=== PATIENT | male | born 1995 | race Caucasian/White ===

== ENCOUNTER 2017-11-07 15:31 | Emergency (ER) | payer MEDICAID, SELFPAY ==
[2017-11-07 16:40] VITALS: BP 141/90; PULSE 86; RESP 20; TEMP 36.8; O2SAT 99; BMI 24.4
--- NOTE | 2017-11-07 17:28 | HMH.EDUTC ---
[facility] Disposition Clinical Impression: STD exposure Disposition: Home, Self-Care Condition on Discharge: Good Additional Instructions: No unprotected sex Follow up with family doctor for further treatment and testing Return if needed If you began having worsening of symptoms and any life threatening symptoms go straight to ER Time of Disposition: 17:46 Medical Decision Making - Medical Records Medical records reviewed: Yes: I reviewed the patient's medical records. Vital Signs: 11/07/17 16:40 Temperature 98.2 F Temperature Source Temporal Artery Scan Pulse Rate [Brachial] 86 Respiratory Rate 20 Blood Pressure [Right Arm] 141/90 Blood Pressure Mean [Right Arm] 107 Blood Pressure Source [Right Arm] Automatic Cuff Blood Pressure Position [Right Arm] Sitting 02 Sat by Pulse Oximetry 99 Oxygen Delivery Method Room Air - Santi Inquiry Pt receiving controlled substance: No Santi was queried for this patient: No - Reevaluation(s) Time: 17:42 Reevaluation #1: Patient educated that often chlamydia and gonorrhea often coiside with each other and often treated together Patient advised that he is allergic to PCN and that she only tested positive for chlamydia and wanted treated for that Patient adivsed that we would give him medication to cover chlamydia and he would need to follow up with family doctor for further testing and treatment [facility] HPI - General Stated complaint: Poss STD Mode of Arrival: Ambulatory Source of Information: Patient Limitations: No Limitations Description of Symptoms (Recalled from Triage Doc. by RN): EXPOSED TO CHLAMYDIA HEENT Symptoms (Recalled from RN notes): No Resp Symptoms (Recalled from RN notes): No Skin Symptoms (Recalled from RN notes): No MS Symptoms (Recalled from RN notes): No Functional Status (Recalled from RN notes): NA - History of Present Illness Provider Complaint: Patient states that his girlfriend was recently diagnosed and treated for Chlamydia States that her doctor told her to inform him that he needed to come in and get treated State that he didn't want the test just to go ahead and take the medication and not get tested - Related Data Home Medications Medication Instructions Recorded Confirmed No Known Home Medications [No 11/07/17 11/07/17 Known Home Medications] Allergies Allergy/AdvReac Type Severity Reaction Status Date / Time Penicillins [PENICILLINS] Allergy Unknown I-HIVES Unverified 08/23/17 14:09 - Worker's Comp Is this a Worker's Comp case?: No [facility] History I have reviewed the patient's past medical history: Yes - Social History Smoking Status: Never smoker Alcohol Intake: never - Psychiatric History Expresses thoughts of harming self/others: None Suicide Plan Description: No Plan ROS Obtained: Yes All systems reviewed & no additional complaints Physical Exam - General General appearance: alert, in no apparent distress - Respiratory Respiratory exam: Present: normal lung sounds bilaterally. Absent: respiratory distress - Cardiovascular Cardiovascular exam: Present: regular rate, normal rhythm. Absent: JVD - Abdominal Exam Abdominal exam: Present: soft, normal bowel sounds. Absent: distention, tenderness, guarding - Neurological Exam Neurological exam: Present: alert, oriented X3
--- NOTE | 2017-11-07 17:41 | ED_ITS ---
[facility] [place] Disposition Clinical Impression: STD exposure Disposition: Home, Self-Care Condition on Discharge: Good Additional Instructions: No unprotected sex Follow up with family doctor for further treatment and testing Return if needed If you began having worsening of symptoms and any life threatening symptoms go straight to ER Time of Disposition: 17:46 Medical Decision Making - Medical Records Medical records reviewed: Yes: I reviewed the patient's medical records. Vital Signs: 11/07/17 16:40 Temperature 98.2 F Temperature Source Temporal Artery Scan Pulse Rate [Brachial] 86 Respiratory Rate 20 Blood Pressure [Right Arm] 141/90 Blood Pressure Mean [Right Arm] 107 Blood Pressure Source [Right Arm] Automatic Cuff Blood Pressure Position [Right Arm] Sitting 02 Sat by Pulse Oximetry 99 Oxygen Delivery Method Room Air - Santi Inquiry Pt receiving controlled substance: No Santi was queried for this patient: No - Reevaluation(s) Time: 17:42 Reevaluation #1: Patient educated that often chlamydia and gonorrhea often coiside with each other and often treated together Patient advised that he is allergic to PCN and that she only tested positive for chlamydia and wanted treated for that Patient adivsed that we would give him medication to cover chlamydia and he would need to follow up with family doctor for further testing and treatment [facility] HPI - General Stated complaint: Poss STD Mode of Arrival: Ambulatory Source of Information: Patient Limitations: No Limitations Description of Symptoms (Recalled from Triage Doc. by RN): EXPOSED TO CHLAMYDIA HEENT Symptoms (Recalled from RN notes): No Resp Symptoms (Recalled from RN notes): No Skin Symptoms (Recalled from RN notes): No MS Symptoms (Recalled from RN notes): No Functional Status (Recalled from RN notes): NA - History of Present Illness Provider Complaint: Patient states that his girlfriend was recently diagnosed and treated for Chlamydia States that her doctor told her to inform him that he needed to come in and get treated State that he didn't want the test just to go ahead and take the medication and not get tested - Related Data Home Medications Medication Instructions Recorded Confirmed No Known Home Medications [No 11/07/17 11/07/17 Known Home Medications] Allergies Allergy/AdvReac Type Severity Reaction Status Date / Time Penicillins [PENICILLINS] Allergy Unknown I-HIVES Unverified 08/23/17 14:09 - Worker's Comp Is this a Worker's Comp case?: No [facility] History I have reviewed the patient's past medical history: Yes - Social History Smoking Status: Never smoker Alcohol Intake: never - Psychiatric History Expresses thoughts of harming self/others: None Suicide Plan Description: No Plan ROS Obtained: Yes All systems reviewed & no additional complaints Physical Exam - General General appearance: alert, in no apparent distress - Respiratory Respiratory exam: Present: normal lung sounds bilaterally. Absent: respiratory distress - Cardiovascular Cardiovascular exam: Present: regular rate, normal rhythm. Absent: JVD - Abdominal Exam Abdominal exam: Present: soft, normal bowel sounds. Absent: distention, tenderness, guarding - Neurological Exam Neurological exam: Present: alert, oriented X3
[2017-11-07 17:50] VITALS: BP 141/90; PULSE 86; RESP 20; TEMP 36.8; O2SAT 99
== END 2017-11-07 17:51 | disposition home or self-care (01) ==
PROVIDERS: Emergency Provider Nurse Practitioner
DX: Z20.2 Contact with and (suspected) exposure to infections with a predominantly sexual mode of transmission (principal); Z88.0 Allergy status to penicillin
CPT/HCPCS: 99202